=== PATIENT | female | born 1955 | race Hispanic/Latino ===

== ENCOUNTER → 2017-09-05 | Outpatient (CLI) | payer OTHER ==
--- NOTE | 2017-09-05 12:08 | Diagnostic Imaging Report ---
PROCEDURE:CHEST 2 VIEWS TECHNIQUE:PA and lateral chest INDICATION:Chronic cough; congestion COMPARISON:None. FINDINGS: Lungs are clear and symmetrically inflated. No pleural effusions. Normal heart size mediastinal contour. Intact skeleton. CONCLUSION: No acute abnormality or conspicuous etiology for chronic cough. Dictated by: Sarabjit Corona M.D. on 09/05/2017 at 12:08 Electronically approved by: Sarabjit Corona M.D. on 09/05/2017 at 12:08
--- NOTE | 2017-09-05 12:10 | Diagnostic Imaging Report ---
PROCEDURE:SINUSES (PARANASAL) MIN 3 VIEWS TECHNIQUE:4 views paranasal sinuses INDICATION:Chronic cough; sinusitis; congestion COMPARISON:None. FINDINGS: Paranasal sinuses and mastoid air cells are clear. No gross sinus periostitis or thickening. Midline nasal septum. CONCLUSION: No acute abnormality. Dictated by: Sarabjit Corona M.D. on 09/05/2017 at 12:11 Electronically approved by: Sarabjit Corona M.D. on 09/05/2017 at 12:11
== END ==
LOC: RAD 10:47
PROVIDERS: ATTEND Internal Medicine
DX: R05 Cough (principal); R09.81 Nasal congestion
CPT/HCPCS: 70220; 71046

== ENCOUNTER → 2018-03-17 | Outpatient (CLI) | payer OTHER | LOC: RAD 08:13 | PROVIDERS: ATTEND Internal Medicine | DX: R05 Cough (principal); J32.9 Chronic sinusitis, unspecified ==

== ENCOUNTER → 2018-03-24 | Outpatient (CLI) | payer OTHER ==
--- NOTE | 2018-04-13 08:29 | Diagnostic Imaging Report ---
#[id number] - MGSCRBIL #BILATERAL DIGITAL SCREENING MAMMOGRAM WITH CAD: 03/24/2018 CLINICAL: Routine screening. Comparison is made to exams dated: 03/12/2017 mammogram and 04/20/2015 mammogram - [facility]. Current study contains 4 films. There are scattered fibroglandular elements in both breasts. Current study was also evaluated with a Computer Aided Detection (CAD) system. There are benign vascular calcifications and calcifications in both breasts. No significant masses, calcifications, or other findings are seen in either breast. There has been no significant interval change. IMPRESSION: BENIGN There is no mammographic evidence of malignancy. A 1 year screening mammogram is recommended. The patient will be notified by letter of the results. Bernardino benavidez/pedro:04/10/2018 15:14:41 [employer]: Shanika RODRIGUEZ(R)(M), [facility] letter sent: Compared to Prior B9 Mammogram BI-RADS: 2 Benign
== END ==
LOC: MAMMO 08:21
PROVIDERS: ATTEND Internal Medicine
DX: Z12.31 Encounter for screening mammogram for malignant neoplasm of breast (principal)
CPT/HCPCS: 77067

== ENCOUNTER → 2018-04-02 | Outpatient (CLI) | payer OTHER ==
--- NOTE | 2018-04-02 12:25 | Diagnostic Imaging Report ---
EXAM: CT Chest WITHOUT contrast 04/02/2018 10:49 AM INDICATION: Chronic cough. Prior cholecystectomy COMPARISON: None TECHNIQUE: Chest was scanned utilizing a multidetector helical scanner from the lung apex through the level of the adrenal glands without administration of IV contrast. Absence of intravenous contrast decreases sensitivity for detection of lymphadenopathy and vascular pathology. Coronal and sagittal reformations were obtained. Routine protocol was performed. IV CONTRAST: None RADIATION DOSE: Total DLP: 526.73 mGy*cm Estimated effective dose: (DLP x 0.014 x size factor) mSv COMPLICATIONS: None FINDINGS: LINES/ TUBES: None. LUNGS AND AIRWAYS: The lungs are unremarkable. Airways are normal. PLEURA: The pleural spaces are clear. HEART AND MEDIASTINUM: The thyroid gland is normal. No mediastinal, hilar or axillary lymphadenopathy. The heart is normal in size.. There is no pericardial effusion. There is mild scattered atherosclerotic calcification in the coronary arteries, aorta and branch vessels. UPPER ABDOMEN: Mild perinephric fat stranding could be due to chronic medical renal disease. BONES: The visualized bony thorax is within normal limits. SOFT TISSUES: Unremarkable. IMPRESSION: No consolidated pneumonia, pleural effusion or pneumothorax. Mild perinephric fat stranding could be due to chronic medical renal disease. Signed by: Dr. Geoff Watkins M.D. on 04/02/2018 12:22 PM
== END ==
LOC: CT 10:39
PROVIDERS: ATTEND Internal Medicine
DX: R05 Cough (principal)
CPT/HCPCS: 71250

== ENCOUNTER → 2019-05-03 | Outpatient (CLI) | payer MEDICARE | LOC: MAMMO 09:13 | PROVIDERS: ATTEND Internal Medicine | DX: Z12.31 Encounter for screening mammogram for malignant neoplasm of breast (principal) | CPT/HCPCS: 77067 ==

== ENCOUNTER 2022-03-02 00:28 | Emergency (ER) | payer MEDICARE ==
[~2022-03-02] VITALS: Ht 152.4 cm; Wt 82.1 kg
[~2022-03-02 00:28] MED LIST: ALBUTEROL 108 MCG INH; ALBUTEROL2.5 MG/0.5 NEB; ATORVASTATIN CA10 MG PO; BREO ELLIPTA 21 EACH INH; FLUTICASONE P15.8 ML; GABAPENTIN300 MG PO; JANUVIA100 MG PO; LEVOCETIRIZINE D5 MG PO; LOSARTAN POTASS25 MG PO; MELOXICAM7.5 MG PO; METFORMIN HCL500 MG PO; MONTELUKAST SOD10 MG PO; TRAZODONE HCL50 MG PO
[2022-03-02] MEDS ORDERED: KETOROLAC TROMETHAMINE 30 MG/ML VIAL IM ONE (00:45)
[2022-03-02] MEDS ORDERED: NAPROSYN500 MG PO (00:46)
[2022-03-02] MEDS ORDERED: KETOROLAC TROMETHAMINE 30 MG/ML VIAL ONE (00:57)
== END 2022-03-02 00:49 | disposition home or self-care (01) ==
LOC: ER 00:40
DX: M25.562 Pain in left knee (principal); G89.29 Other chronic pain; M13.862 Other specified arthritis, left knee; I10 Essential (primary) hypertension; E11.8 Type 2 diabetes mellitus with unspecified complications; E78.5 Hyperlipidemia, unspecified
CPT/HCPCS: 99282; J1885